=== PATIENT | male | born 1985 | race Caucasian/White ===

== ENCOUNTER 2019-12-11 09:20 | Emergency (ER) | payer BC ==
[2019-12-11] MEDS ORDERED: KETOROLAC 30 MG/ML INJ ONE (10:32)
--- NOTE | 2019-12-11 11:43 | EDPHYS ---
Physician Documentation [facility] Name: Arjun Kelsey Age: 34 yrs Sex: Male : 1985 Arrival Date: 12/11/2019 Time: 09:27 Bed 2 Private MD: ED Physician Live Yepez HPI: 12/10 09:58 This 34 yrs old Male presents to ER via Wheelchair with complaints of Ankle ma2 Injury. 09:58 The patient presents with pain, that is acute. The complaints affect the left ankle. ma2 Onset: The symptoms/episode began/occurred suddenly, 1 day(s) ago. Associated signs and symptoms: Pertinent negatives: nausea, rash, tingling, vomiting. Severity of symptoms: At their worst the symptoms were moderate, in the emergency department the symptoms are unchanged. The patient has not experienced similar symptoms in the past. Historical: - Allergies: 09:38 No Known Allergies; sv - PMHx: 09:38 None; sv - PSHx: 09:38 left foot; sv - Immunization history:: Adult Immunizations up to date, Flu vaccine is up to date. - Social history:: Smoking status: Patient reports the use of cigarette tobacco products, smokes one-half pack cigarettes per day, Patient/guardian denies using street drugs, IV drugs, Patient/guardian denies using alcohol, The patient lives with family. - Family history:: not pertinent. ROS: 09:58 Constitutional: Negative for fever, chills, and weight loss. ma2 09:58 All other systems are negative. Exam: 09:58 Constitutional: This is a well developed, well nourished patient who is awake, alert, ma2 and in no acute distress. Chest/axilla: Normal chest wall appearance and motion. Nontender with no deformity. No lesions are appreciated. Cardiovascular: Regular rate and rhythm with a normal S1 and S2. No gallops, murmurs, or rubs. Normal PMI, no JVD. No pulse deficits. Respiratory: Lungs have equal breath sounds bilaterally, clear to auscultation and percussion. No rales, rhonchi or wheezes noted. No increased work of breathing, no retractions or nasal flaring. Abdomen/GI: Soft, non-tender, with normal bowel sounds. No distension or tympany. No guarding or rebound. No evidence of tenderness throughout. Skin: Warm, dry with normal turgor. Normal color with no rashes, no lesions, and no evidence of cellulitis. MS/ Extremity: ttp over left lateral ankle, Pulses equal, no cyanosis. Neurovascular intact. Full, normal range of motion. Neuro: Awake and alert, GCS 15, oriented to person, place, time, and situation. Cranial nerves II-XII grossly intact. Motor strength 5/5 in all extremities. Sensory grossly intact. Cerebellar exam normal. Normal gait. Vital Signs: 09:36 BP 139 / 101; Pulse 64; Resp 20; Temp 97.6; Pulse Ox 98% ; Weight 81.65 kg; Height 5 sv ft. 10 in. (177.80 cm); Pain 0/10; 10:35 BP 135 / 91; Pulse 53; Resp 18; Pulse Ox 99% ; sv 11:41 BP 129 / 81; Pulse 50; Resp 20; Pulse Ox 96% ; sv 12:30 BP 123 / 73; Pulse 54; Resp 16; Pulse Ox 95% ; sv 09:36 Body Mass Index 25.83 (81.65 kg, 177.80 cm) sv Procedures: 11:40 Splinting: Splint applied to left leg using applied by tech. nurse. post reduction film ma2 - Examined by me, post splint application: neurovascular intact, 2+ distal pulses palpable, brisk capillary refill noted, Patient tolerated well. MDM: 09:32 Patient medically screened. nd2 09:58 Differential diagnosis: fracture, sprain, arthritis, gout. [facility] 11:40 Data reviewed: vital signs, nurses notes. Counseling: I had a detailed discussion with ma2 the patient and/or guardian regarding: the historical points, exam findings, and any diagnostic results supporting the discharge/admit diagnosis, the presence of at least one elevated blood pressure reading (>120/80) during this emergency department visit, the need for outpatient follow up. Response to treatment: the patient's symptoms have markedly improved after treatment. 12/10 09:49 Order name: Ankle Left [address] [facility] 12/10 09:49 Order name: Foot Left 3 View XRAY; Complete Time: 12:17 [facility] 12/10 11:41 Order name: Splint - Ankle: Orthoglass: Moni; Complete Time: 12:34 [facility] 12/10 11:41 Order name: Crutches; Complete Time: 12:34 ma2 Administered Medications: 10:28 Drug: TORadol 60 mg Route: IM; Site: right vastus lateralis; sv 11:00 Follow up: Response: No adverse reaction sv Disposition: 12/11/19 11:42 Discharged to Home. Impression: Fracture of lower leg, including ankle. - Condition is Stable. - Discharge Instructions: Ankle Fracture. - Prescriptions for Diclofenac Sodium 75 mg Oral Tablet Sustained Release - take 1 tablet by ORAL route 2 times per day; 30 tablet. - Medication Reconciliation Form, Thank You Letter, Antibiotic Education, Prescription Opioid Use form. - Follow up: Wojciech Hurst MD; When: Tomorrow; Reason: If symptoms return. - Notes: you may need surgery, see bone doctor in 2 days Signatures: Dispatcher [employer] Rylee Higuera RN RN Laura Feliciano RN RN Live Yepez MD MD nd2 Corrections: (The following items were deleted from the chart) 12:42 11:42 12/11/2019 11:42 Discharged to Home. Impression: Fracture of lower leg, including ph ankle. Condition is Stable. Forms are Medication Reconciliation Form, Thank You Letter, Antibiotic Education, Prescription Opioid Use. Follow up: Dr. Wojciech Hurst; When: Tomorrow; Reason: If symptoms return. ma2
--- NOTE | 2019-12-11 11:43 | ER ---
Nurse's Notes [facility] Name: Arjun Kelsey Age: 34 yrs Sex: Male : 1985 Arrival Date: 12/11/2019 Time: 09:27 Bed 2 Private MD: Diagnosis: Fracture of lower leg, including ankle Presentation: 12/10 09:36 Chief complaint: Patient states: fell off of the roof yesterday and landed on both feet sv with a branch that was about 4 in wide hitting the top of his left foot. Denies LOC. c/o left foot/ankle pain. Coronavirus screen: Proceed with normal triage. Patient denies a cough. Patient denies shortness of breath or difficulty breathing. Patient denies measured and/or subjective temperature greater than 100.4F prior to today's visit. Patient denies travel on a cruise ship or to a country the [facility] currently lists as an affected area. Patient denies contact with known and/or suspected case of COVID-19. Ebola Screen: No symptoms or risks identified at this time. Initial Sepsis Screen: Does the patient meet any 2 criteria? No. Patient's initial sepsis screen is negative. Does the patient have a suspected source of infection? No. Patient's initial sepsis screen is negative. Risk Assessment: Do you want to hurt yourself or someone else? Patient reports no desire to harm self or others. Onset of symptoms was December 10, 2019. 09:36 Method Of Arrival: Wheelchair sv 09:36 Acuity: RAHEEL 2 sv Triage Assessment: 09:36 General: Appears in no apparent distress. uncomfortable, slender, well groomed, well sv developed, Behavior is calm, cooperative, appropriate for age. Pain: Complains of pain in left lateral ankle and lateral aspect of left foot Pain currently is 0 out of 10 on a pain scale. at worst was 9 out of 10 on a pain scale. Neuro: Level of Consciousness is awake, alert, obeys commands, Oriented to person, place, time, situation, Moves all extremities. Respiratory: Respiratory effort is even, unlabored, Respiratory pattern is regular, symmetrical. Derm: Skin is pink, warm \T\ dry. Bruising that is dark purple, on left ankle. Musculoskeletal: Range of motion: limited in left ankle Swelling present in left ankle. Historical: - Allergies: 09:38 No Known Allergies; sv - PMHx: 09:38 None; sv - PSHx: 09:38 left foot; sv - Immunization history:: Adult Immunizations up to date, Flu vaccine is up to date. - Social history:: Smoking status: Patient reports the use of cigarette tobacco products, smokes one-half pack cigarettes per day, Patient/guardian denies using street drugs, IV drugs, Patient/guardian denies using alcohol, The patient lives with family. - Family history:: not pertinent. Screenin:41 Abuse screen: Denies threats or abuse. Denies injuries from another. Nutritional ph screening: No deficits noted. Tuberculosis screening: No symptoms or risk factors identified. Fall Risk None identified. Assessment: 10:28 Reassessment: Patient appears in no apparent distress at this time. Patient and/or sv family updated on plan of care and expected duration. Pain level reassessed. Patient is alert, oriented x 3, equal unlabored respirations, skin warm/dry/pink. 12:36 Reassessment: Dr Yepez assessed the splint placement. sv 12:42 Reassessment: Patient appears in no apparent distress at this time. Patient and/or sv family updated on plan of care and expected duration. Pain level reassessed. Patient is alert, oriented x 3, equal unlabored respirations, skin warm/dry/pink. Vital Signs: 09:36 BP 139 / 101; Pulse 64; Resp 20; Temp 97.6; Pulse Ox 98% ; Weight 81.65 kg; Height 5 sv ft. 10 in. (177.80 cm); Pain 0/10; 10:35 BP 135 / 91; Pulse 53; Resp 18; Pulse Ox 99% ; sv 11:41 BP 129 / 81; Pulse 50; Resp 20; Pulse Ox 96% ; sv 12:30 BP 123 / 73; Pulse 54; Resp 16; Pulse Ox 95% ; sv 09:36 Body Mass Index 25.83 (81.65 kg, 177.80 cm) sv ED Course: 09:27 Patient arrived in ED. fj1 09:29 Rylee Jones, RANGEL is Primary Nurse. sv 09:30 Arm band placed on Patient placed in an exam room, on a stretcher. sv 09:30 Patient has correct armband on for positive identification. Bed in low position. Call sv light in reach. Door closed. Head of bed elevated. 09:32 Live Yepez MD is Attending Physician. ma2 09:38 Triage completed. sv 10:22 Ankle Left 3 View XRAY In Process Unspecified. EDMS 10:22 Foot Left 3 View XRAY In Process Unspecified. EDMS 11:42 Wojciech Hurst MD is Referral Physician. ma2 12:34 Maxwell wrap to left ankle and left leg Orthoglass splint: Posterior short lleg splint jp3 applied on left leg. stirrup splint applied on left leg. 12:41 No provider procedures requiring assistance completed. Patient did not have IV access ph during this emergency room visit. Administered Medications: 10:28 Drug: TORadol 60 mg Route: IM; Site: right vastus lateralis; sv 11:00 Follow up: Response: No adverse reaction sv Outcome: 11:42 Discharge ordered by . ma2 12:42 Discharged to home ambulatory, with crutches. ph 12:42 Condition: good 12:42 Discharge instructions given to patient, Instructed on discharge instructions, follow up and referral plans. medication usage, Demonstrated understanding of instructions, follow-up care, medications, Prescriptions given X 1. 12:42 Patient left the ED. ph Signatures: Dispatcher [employer] EDRylee Swenson RN RN Laura Aceves RN RN Live Yepez MD MD ma2 Mynor Doll jp3 Justin Wilkins fj1
[2019-12-11 13:03] VITALS: TEMP 97.6
[2019-12-11 13:07] VITALS: BP 123/73; O2SAT 95
--- NOTE | 2019-12-13 13:20 | RAD REPORT ---
EXAM DESCRIPTION: RAD - Ankle Left 3 View - 12/11/2019 10:21 am CLINICAL HISTORY: PAIN Fall, trauma, pain COMPARISON: None FINDINGS: Left ankle and left foot - multiple projections Comminuted intra-articular fracture is seen affecting the distal tibia anteriorly. Moderate soft tiss ue swelling. Subtle fracture anterior process of the calcaneus as well as the cuboid is suspected. Fr acture of the distal fibula anteriorly also probably present. Large posterior calcaneal spur.
== END 2019-12-11 12:42 | disposition home or self-care (01) ==
LOC: ER 09:20
PROC: 2W3RX1Z Immobilization of Left Lower Leg using Splint (ICD-10-PCS; principal; 2019-12-11)
DX: S82.892A Other fracture of left lower leg, initial encounter for closed fracture (principal); F17.210 Nicotine dependence, cigarettes, uncomplicated
CPT/HCPCS: 96372; 99284